=== PATIENT | male | born 1970 | race Caucasian/White ===

== ENCOUNTER → 2016-12-07 | Outpatient (CLI) | payer OTHER ==
--- NOTE | ~2016-12-07 | ENPV ---
Vascular Lower Extremities DVT Study Procedure Demographics Patient Name GIA NAVA Date of Study 12/07/2016 Patient Number [id number] Gender Male Date of 1970 Age 46 Visit Number [id number] Height Accession Number [id number] Weight Room Number BSA BMI Referring Jass Gaming Interpreting Escobar Lam MD Physician Physician Physician Ordering Physician Escobar Lam MD Flux Tube Attendant Rn Pain Management Brittney Ladarius RDCS, RVT Estivennena Winter RVT, RDCS Conclusions Summary No evidence of deep vein thrombosis or superficial thrombophlebitis in the right lower extremity . Procedure Type of Study: Veins:Lower Extremities DVT Study, Lower Extremity Right. Indications for Study:Swelling. Appropriate Use Criteria:7 Patient Status:Routine. Study Location:Vascular Lab. Technical Quality:Adequate visualization. Velocities are measured in cm/s ; Diameters are measured in cm Right Lower Extremities DVT Study Measurements Right 2D and Doppler Measurements + + + + +------+------+ + !Location !Visualized!Compressibility!Thrombosis!Signal!Reflux!Reflux ! ! ! ! ! ! ! !(sec) ! + + + + +------+------+ + !GSV Thigh !Yes !Yes !None !Phasic! ! ! + + + + +------+------+ + !Common !Yes !Yes !None !Phasic! ! ! !Femoral ! ! ! ! ! ! ! + + + + +------+------+ + !Prox !Yes !Yes !None !Phasic! ! ! !Femoral ! ! ! ! ! ! ! + + + + +------+------+ + !Mid Femoral!Yes !Yes !None !Phasic! ! ! + + + + +------+------+ + !Dist !Yes !Yes !None !Phasic! ! ! !Femoral ! ! ! ! ! ! ! + + + + +------+------+ + !Popliteal !Yes !Yes !None !Phasic! ! ! + + + + +------+------+ + !PTV !Yes !Yes !None !Phasic! ! ! + + + + +------+------+ + !Peroneal !Yes !Yes !None !Phasic! ! ! + + + + +------+------+ + Left Lower Extremities DVT Study Measurements Left 2D and Doppler Measurements + + + + +------+------+ + !Location !Visualized!Compressibility!Thrombosis!Signal!Reflux!Reflux ! ! ! ! ! ! ! !(sec) ! + + + + +------+------+ + !GSV Thigh !Yes !Yes !None !Phasic! ! ! + + + + +------+------+ + !Common !Yes !Yes !None !Phasic! ! ! !Femoral ! ! ! ! ! ! ! + + + + +------+------+ + Signature dtt: KRISTI LOVE dtsulaiman: 12/07/16 1403 Physician Self Edit
--- NOTE | ~2016-12-07 | ENPV ---
Vascular Lower Extremities Arterial Duplex and Lower Arterial Plethysmography Procedure Demographics Patient Name GIA NAVA Date of Study 12/07/2016 Patient Number [id number] Gender Male Date of 1970 Age 46 Visit Number [id number] Height Accession Number [id number] Weight Room Number BSA BMI Referring Jass Gaming Interpreting Escobar Lam MD Physician Jennie Metzger Physician Physician Ordering Physician Escobar Lam MD Acoustical Carpenter Train Dispatcher Brittneyha Durand RDCS, RVT Estivennena Winter RVT, RDCS Conclusions Summary Non compressible vessels. LUCY cannot be calculated. Monophasic Doppler waveforms throughout the left lower extremity. 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 Indications for Study:Peripheral vascular disease. Appropriate Use Criteria:7 Patient Status:Routine. Study Location:Vascular Lab. Technical Quality:Adequate visualization. Velocities are measured in cm/s ; Diameters are measured in cm Post Exercise + +----+ +---------+--------+ + + ! ! !Right ! !Left ! ! ! + +----+ +---------+--------+ + + !Location ! !Pressure !Ratio ! !Pressure !Ratio ! + +----+ +---------+--------+ + + !Toe ! !52 !0.37 ! !86 !0.61 ! + +----+ +---------+--------+ + + - Brachial Pressure:Right: 139.Left:142. Velocities are measured in cm/s ; Diameters are measured in cm LE Duplex Measurements + ++-----+ +----+---+ + ! !!Right! !Left! ! ! + ++-----+ +----+---+ + !Location !!PSV !Wave Desc.! !PSV!Wave Desc.! + ++-----+ +----+---+ + !Dist EIA !!153 !Monophasic! !135!Monophasic! + ++-----+ +----+---+ + !Femoral !!126 !Monophasic! !79 !Monophasic! + ++-----+ +----+---+ + !PFA !!76 !Monophasic! !38 !Monophasic! + ++-----+ +----+---+ + !Prox SFA !! !Occluded ! !90 !Monophasic! + ++-----+ +----+---+ + !Mid SFA !! !Occluded ! !170!Monophasic! + ++-----+ +----+---+ + !Dist SFA !!27 !Monophasic! !120!Monophasic! + ++-----+ +----+---+ + !Prox Popliteal !!29 !Monophasic! !36 !Monophasic! + ++-----+ +----+---+ + !Mid Popliteal !!17 !Monophasic! !35 !Monophasic! + ++-----+ +----+---+ + !Dist Popliteal !!24 !Monophasic! !40 !Monophasic! + ++-----+ +----+---+ + !Prox CHIPPER MACHINE OPERATOR !!17 !Monophasic! !52 !Monophasic! + ++-----+ +----+---+ + !Mid CHIPPER MACHINE OPERATOR !!18 !Monophasic! !43 !Monophasic! + ++-----+ +----+---+ + !Dist CHIPPER MACHINE OPERATOR !!24 !Monophasic! !36 !Monophasic! + ++-----+ +----+---+ + !Prox EVELYN !!28 !Monophasic! !37 !Monophasic! + ++-----+ +----+---+ + !Mid EVELYN !!25 !Monophasic! !29 !Monophasic! + ++-----+ +----+---+ + !Dist EVELYN !!26 !Monophasic! !42 !Monophasic! + ++-----+ +----+---+ + !Prox Peroneal !!17 !Monophasic! !22 !Monophasic! + ++-----+ +----+---+ + !Mid Peroneal !!18 !Monophasic! !31 !Monophasic! + ++-----+ +----+---+ + !Dist Peroneal !!17 !Monophasic! !25 !Monophasic! + ++-----+ +----+---+ + Impressions Right Impression Non compressible vessels. LUCY cannot be calculated. the SFAP- mid is occluded. Left Impression Monophasic Doppler waveforms throughout the left lower extremity. Signature dtt: KRISTI LOVE dtd: 12/07/16 1403 Physician Self Edit
== END | disposition disaster alternative care site (69) ==
LOC: GCAR 13:56
DX: R22.41 Localized swelling, mass and lump, right lower limb (principal)